=== PATIENT | male | born 2000 | race Caucasian/White ===

== ENCOUNTER 2020-11-03 00:31 | Emergency (ER) | payer BC ==
[~2020-11-03] VITALS: Ht 177.8 cm; Wt 63.6 kg
[2020-11-03] MEDS ORDERED: ONDANSETRON PF 4 MG/2 ML VIAL. IVP ONE (01:30)
[2020-11-03] MEDS ORDERED: FAMOTIDINE 20 MG/2 ML VIAL IVP ONE (01:30)
[2020-11-03] MEDS ORDERED: KETOROLAC 15 MG/ML VIAL. IVP ONE (01:30)
[2020-11-03] MEDS ORDERED: FAMO-63 PO (01:37)
[2020-11-03] MEDS ORDERED: HYOS0.1265 SL (01:37)
--- NOTE | 2020-11-03 01:37 | PHYS DOC ---
Past History Past Medical History: Depression Additional Past Medical Histor: Autism, "binocular vison disorder" Additional Past Surgical Histo: Hydrocele, hernia repair Smoking: Non-smoker Alcohol Use: None Drug Use: Marijuana General Adult EDM: Chief Complaint: PSYCH EVALUATION HPI: HPI: 19-year-old male presents with his mother with report of chronic abdominal discomfort which has been intermittent for the past 3 to 4 months. Mother reports patient had had similar episodes for the last several years. Patient has history of depression and autism. Reports some increased work stressors recently. Patient reports she has had interval thoughts of hurting himself at times. Denies any current plan. Denies fever or chills. Denies dysuria or hematuria. Patient presents today requesting evaluation for his chronic abdominal pain in addition to his increased depression/suicidal thoughts. Denies drug or alcohol abuse. Review of Systems: Review of Systems: Constitutional: Denies fever or chills Eyes: Denies redness or eye pain HENT: Denies nasal congestion or sore throat Respiratory: Denies cough or shortness of breath Cardiovascular: Denies chest pain or palpitations GI: Reports diffuse abdominal pain and diarrhea; denies nausea or vomiting : Denies dysuria or hematuria Musculoskeletal: Denies back pain or joint pain Integument: Denies rash or skin lesions Neurologic: Denies headache, focal weakness or sensory changes Complete systems were reviewed and found to be within normal limits, except as documented in this note. Current Medications: Current Meds: Current Medications Medications (Trade) Dose Ordered Sig/Jannette Start Time Stop Time Status Last Admin Dose Admin Famotidine (Pepcid Vial) 20 mg 1X ONCE 11/03/20 01:30 11/03/20 01:31 Ketorolac Tromethamine (Toradol 15mg Vial) 15 mg 1X ONCE 11/03/20 01:30 11/03/20 01:31 Ondansetron HCl (Zofran) 4 mg 1X ONCE 11/03/20 01:30 11/03/20 01:31 Allergies: Allergies: Allergies Coded Allergies Type Severity Reaction Last Updated Verified amoxicillin Allergy Intermediate 11/03/20 Yes Physical Exam: PE: Constitutional: Well developed, well nourished, anxious, non-toxic appearance HENT: Normocephalic, atraumatic Eyes: Conjunctiva normal, no discharge Neck: Normal range of motion, supple Lungs & Thorax: No respiratory distress, equal chest rise and fall Abdomen: Soft, no tenderness, no guarding/rebound tenderness/distention Skin: Warm, dry, no erythema, no rash Back: No tenderness, no CVA tenderness Extremities: No tenderness, ROM intact, no edema Neurologic: Alert and oriented X 3, normal motor function, normal sensory function, no focal deficits noted Psychologic: Affect anxious, judgment normal, reports suicidal ideation history- denies current plan EKG: EKG: [] Radiology/Procedures: Radiology/Procedures: [] Heart Score: C/O Chest Pain: N/A Course & Med Decision Making: Course & Med Decision Making Pertinent Lab studies reviewed. (See chart for details) Patient with anxiety/depression and chronic abdominal discomfort presents for evaluation. Patient does report some suicidal thoughts. Medical screening exam performed. Abdomen nonperitoneal. CT imaging not required at this time. Labs obtained and posted to chart. IV fluid hydration given. Symptomatic treatment also provided. Patient deemed medically cleared for psychiatric evaluation. Kailee ([facility] assessment team) evaluated patient via video conference. Kailee recommends outpatient follow-up. Referral resources booklet provided. Safety plan signed. Patient stable for discharge with outpatient follow-up with PCP/mental health/GI. Discussed findings and plan with patient and mother, who acknowledge understanding and agreement. Monica Disclaimer: Monica Disclaimer: This electronic medical record was generated, in whole or in part, using a voice recognition dictation system. Departure Departure: Impression: Primary Impression: Chronic abdominal pain Additional Impression: Suicidal thoughts Disposition: 01 HOME / SELF CARE / HOMELESS Condition: STABLE Referrals: PCP,YADIRA (PCP) JASBIR ANTHONY MD Patient Instructions: Abdominal Pain, Thvl-in-Rlmt, Chronic Pain Management, Suicidal Feelings, How to Help Yourself, Suicide, Helping Someone Who is Suicidal Additional Instructions: Increase fluid hydration. Please follow closely with [facility] psychiatric services: Dr. Bustillo regarding further evaluation and treatment of your mental health until you have been set up in [place]. Scripts Hyoscyamine Sulfate (LEVSIN-SL) 0.125 Mg Tab.subl 0.125 MG SL Q4-6HRS PRN for PAIN, #14 TAB Prov: DEYSI HAMMOND DO 11/03/20 Famotidine (PEPCID) 20 Mg Tablet 1 TAB PO BID for Gastritis, #20 TAB Prov: DEYSI HAMMOND DO 11/03/20 DEYSI HAMMOND DO Nov 03, 2020 01:37
[2020-11-03 02:32] LABS: BASO % 0 % (0-3); EOS # 0.1 x10^3/uL (0.0-0.7); EOS % 1 % (0-3); HEMATOCRIT 41.6 % (39.0-53.0); HEMOGLOBIN 14.4 g/dL (13.0-17.5); LYMPH % 39 % (24-48); MEAN CORPUSCULAR HEMOGLOBIN 30 pg (25-35); MEAN CORPUSCULAR HGB CONC 35 g/dL (31-37); MEAN CORPUSCULAR VOLUME 85 fL (79-100); MONO # 0.7 x10^3/uL (0.0-1.1); MONO % 9 % (0-9); NEUT % 51 % (31-73); PLATELET COUNT 204 x10^3/uL (140-400); RED BLOOD COUNT 4.88 x10^6/uL (4.30-5.70); RED CELL DISTRIBUTION WIDTH 13.3 % (11.5-14.5); WHITE BLOOD COUNT 7.8 x10^3/uL (4.0-11.0)
[2020-11-03 02:40] LABS: BACTERIA,URINE 0 /HPF (0-FEW); BILIRUBIN,URINE NEG (NEG); CLARITY,URINE CLEAR; COLOR,URINE YELLOW; GLUCOSE,URINE NEG (NEG); NITRITE,URINE NEG (NEG); RBC,URINE OCC /HPF (0-2); SQUAMOUS EPITHELIAL CELL,UR OCC /LPF; UROBILINOGEN,URINE 0.2 mg/dL (0.2 mg/dL); WBC,URINE OCC /HPF (0-4)
[2020-11-03 02:41] LABS: BARBITURATES NEG (NEG); BENZODIAZEPINES NEG (NEG); CANNABINOIDS POS (NEG); COCAINE NEG (NEG); METHADONE NEG (NEG); OPIATES NEG (NEG); PHENCYCLIDINE NEG (NEG)
[2020-11-03 02:42] LABS: AMPHETAMINE/METHAMPHETAMINE NEG (NEG)
[2020-11-03 02:45] LABS: ALBUMIN 4.6 g/dL (3.4-5.0); ALBUMIN/GLOBULIN RATIO 1.4 (1.0-1.7); CREATININE 1.1 mg/dL (0.7-1.3); GFR 86.2; MAGNESIUM 2.1 mg/dL (1.8-2.4); POTASSIUM 3.4 mmol/L (3.5-5.1); TOTAL BILIRUBIN 0.8 mg/dL (0.2-1.0); TOTAL PROTEIN 7.8 g/dL (6.4-8.2)
[2020-11-03 02:47] VITALS: BP 130/74
[2020-11-03 02:47] LABS: ACETAMIN < 2.0 mcg/mL (10-30); ETHANOL < 10 mg/dL (0-10); SALIC < 2.8 mg/dL (2.8-20.0)
== END 2020-11-03 03:05 | disposition home or self-care (01) ==
LOC: ER 00:31
DX: R10.84 Generalized abdominal pain (principal); G89.29 Other chronic pain; R45.851 Suicidal ideations; R19.7 Diarrhea, unspecified; F32.9 Major depressive disorder, single episode, unspecified; Z88.1 Allergy status to other antibiotic agents
CPT/HCPCS: 36415; 80053; 80307; 80329; 81001; 83690; 83735; 85025; 96374; 96375; 99285; G0480; J1885; J2405; J3490